=== PATIENT | male | born 1940 | race Caucasian/White ===

== ENCOUNTER 2021-01-04 02:50 | Observation (INO) ==
[2021-01-04] MEDS ORDERED: Furosemide 40 MG TABLET PO PRN (09:15)
[2021-01-04] MEDS ORDERED: Nitroglycerin 0.4 MG TAB.SUBL SL PRN (09:15)
[2021-01-04] MEDS ORDERED: Furosemide 40 MG/4 ML VIAL IVP SCH (10:06)
[2021-01-04] MEDS ORDERED: Naloxone 0.4 MG/ML INJ IVP PRN (10:07)
[2021-01-04] MEDS ORDERED: Ondansetron ODT 4 MG TAB.RAPDIS SL PRN (10:07)
[2021-01-04] MEDS ORDERED: MOM Conc 10 ML UD.LIQ PO PRN (10:07)
[2021-01-04 10:30] LABS: Basophils # 0.1 K/mcL (0.0-0.2); Basophils % 0.6 %; Eosinophils # 0.2 K/mcL (0.0-0.6); Eosinophils % 1.8 %; Hematocrit 30.9 % (37.5-50.1); Hemoglobin 10.1 g/dL (12.9-16.9); Lymphocytes # 1.6 K/mcL (0.6-4.6); Lymphocytes % 12.8 %; Mean Corpuscular HGB Conc 32.7 g/dL (31.6-35.5); Mean Corpuscular Hemoglobin 31.4 pg (28.0-33.3); Mean Platelet Volume 9.7 fL (9.4-12.4); Monocytes # 1.2 K/mcL (0.0-1.3); Monocytes % 9.4 %; Neutrophils # 9.2 K/mcL (1.6-8.9); Platelet Count 294 K/mcL (140-400); Red Blood Count 3.22 M/mcL (4.19-5.50); Red Cell Distribution Width 13.3 % (11.5-14.5); Segmented Neutrophils % 74.4 %; White Blood Count 12.4 K/mcL (4.3-11.1)
[2021-01-04] MEDS: Isosorbide MONOnitrate (24 HR) 30 MG TAB.ER.24H PO SCH (10:37)
[2021-01-04] MEDS: *HR* Amiodarone 200 MG TABLET PO SCH ×2 (10:37→20:30)
[2021-01-04] MEDS: Aspirin 81 MG TAB.CHEW PO SCH (10:37)
[2021-01-04] MEDS: lisinopriL 5 MG TABLET PO SCH (10:37)
[2021-01-04] MEDS: Apixaban 5 MG TABLET PO SCH ×2 (10:37→20:30)
[2021-01-04] MEDS: *HR* GlipiZIDE XL (24 HR) 2.5 MG TABLET PO SCH (10:37)
[2021-01-04] MEDS: Furosemide 40 MG/4 ML VIAL IVP SCH ×2 (10:38→17:32)
[2021-01-04] MEDS ORDERED: *HR* Dextrose 50 % in Water (Vial) 50 ML VIAL IVP PRN (10:40)
[2021-01-04] MEDS ORDERED: Dextrose Gel 15 GM/37.5 ML TUBE PO PRN ×2 (10:40)
[2021-01-04] MEDS ORDERED: D5% in Water 1,000 ML IVC PRN (10:40)
[2021-01-04] MEDS: Multivit/Ca/Min/Fe/FA 1 TAB TABLET PO SCH (10:48)
[2021-01-04] MEDS: Magnesium Oxide 400 MG TABLET PO SCH ×2 (10:48→20:30)
[2021-01-04] MEDS: Metoprolol XL (24 HR) Succ 50 MG TAB.ER.24H PO SCH (10:48)
[2021-01-04] MEDS ORDERED: Spironolactone 12.5 MG TABLET PO SCH (11:00)
[2021-01-04] MEDS: Spironolactone 25 MG TABLET PO SCH (11:49)
[2021-01-04] MEDS: Insulin LISPRO 300 UNITS/3 ML VIAL SUBQ SCH ×2 (11:50→17:32)
[2021-01-05] MEDS: lisinopriL 5 MG TABLET PO SCH (09:32)
[2021-01-05] MEDS: Magnesium Oxide 400 MG TABLET PO SCH ×2 (09:32→20:17)
[2021-01-05] MEDS: Aspirin 81 MG TAB.CHEW PO SCH (09:32)
[2021-01-05] MEDS: Multivit/Ca/Min/Fe/FA 1 TAB TABLET PO SCH (09:32)
[2021-01-05] MEDS: Apixaban 5 MG TABLET PO SCH ×2 (09:32→20:17)
[2021-01-05] MEDS: Isosorbide MONOnitrate (24 HR) 30 MG TAB.ER.24H PO SCH (09:33)
[2021-01-05] MEDS: Spironolactone 25 MG TABLET PO SCH (09:34)
[2021-01-05] MEDS: Furosemide 40 MG/4 ML VIAL IVP SCH ×2 (09:34→16:47)
[2021-01-05] MEDS: *HR* GlipiZIDE XL (24 HR) 2.5 MG TABLET PO SCH (09:34)
[2021-01-05] MEDS: *HR* Amiodarone 200 MG TABLET PO SCH ×2 (09:34→20:17)
[2021-01-05] MEDS: Metoprolol XL (24 HR) Succ 50 MG TAB.ER.24H PO SCH (09:34)
[2021-01-05] MEDS: Insulin LISPRO 300 UNITS/3 ML VIAL SUBQ SCH ×3 (09:35→16:35)
[2021-01-05 09:41] LABS: Alanine Aminotransferase 23 Units/L (7-52); Albumin 3.5 g/dL (3.5-5.7); Albumin/Globulin Ratio 1.1 (1.1-2.2); Alkaline Phosphatase 179 Units/L (34-104); Aspartate Amino Transferase 21 Units/L (13-39); BUN/Creatinine Ratio 26 (6-26); Bilirubin,Total 1.6 mg/dL (0.3-1.0); Blood Urea Nitrogen 33 mg/dL (8-23); Carbon Dioxide 33 mEq/L (23-29); Chloride 93 mEq/L (98-107); Globulin 3.2 g/dL (2.4-3.5); Glucose 208 mg/dL (70-105); Osmolality,Calculated 291 (280-300); Potassium 4.1 mEq/L (3.5-5.1); Sodium 134 mEq/L (136-145); Total Protein 6.7 g/dL (6.4-8.9); eGFR For African Americans > 60 (> 60); eGFR For Non-African Americans 54 (> 60)
[2021-01-05] MEDS ORDERED: Furosemide 40 MG/4 ML VIAL IVP ONE (11:34)
[2021-01-06 07:42] LABS: Basophils # 0.1 K/mcL (0.0-0.2); Basophils % 0.6 %; Eosinophils # 0.5 K/mcL (0.0-0.6); Eosinophils % 3.9 %; Hematocrit 28.3 % (37.5-50.1); Hemoglobin 9.1 g/dL (12.9-16.9); Lymphocytes # 1.9 K/mcL (0.6-4.6); Mean Corpuscular HGB Conc 32.2 g/dL (31.6-35.5); Mean Corpuscular Hemoglobin 31.4 pg (28.0-33.3); Mean Corpuscular Volume 97.6 fL (83.0-100.0); Monocytes # 1.4 K/mcL (0.0-1.3); Monocytes % 10.8 %; Neutrophils # 8.9 K/mcL (1.6-8.9); Platelet Count 323 K/mcL (140-400); Red Cell Distribution Width 13.5 % (11.5-14.5); Segmented Neutrophils % 68.7 %; White Blood Count 12.9 K/mcL (4.3-11.1)
[2021-01-06 08:09] LABS: Alanine Aminotransferase 21 Units/L (7-52); Albumin 3.3 g/dL (3.5-5.7); Alkaline Phosphatase 175 Units/L (34-104); Aspartate Amino Transferase 21 Units/L (13-39); BUN/Creatinine Ratio 25 (6-26); Bilirubin,Total 1.5 mg/dL (0.3-1.0); Blood Urea Nitrogen 34 mg/dL (8-23); Carbon Dioxide 34 mEq/L (23-29); Chloride 91 mEq/L (98-107); Globulin 3.2 g/dL (2.4-3.5); Glucose 84 mg/dL (70-105); Osmolality,Calculated 283 (280-300); Potassium 4.3 mEq/L (3.5-5.1); Sodium 133 mEq/L (136-145); Total Protein 6.5 g/dL (6.4-8.9); eGFR For African Americans > 60 (> 60); eGFR For Non-African Americans 50 (> 60)
[2021-01-06] MEDS: Furosemide 40 MG/4 ML VIAL IVP SCH ×2 (08:30→17:13)
[2021-01-06] MEDS: Spironolactone 25 MG TABLET PO SCH (08:31)
[2021-01-06] MEDS: Metoprolol XL (24 HR) Succ 50 MG TAB.ER.24H PO SCH (08:31)
[2021-01-06] MEDS: Isosorbide MONOnitrate (24 HR) 30 MG TAB.ER.24H PO SCH (08:31)
[2021-01-06] MEDS: Multivit/Ca/Min/Fe/FA 1 TAB TABLET PO SCH (08:31)
[2021-01-06] MEDS: Aspirin 81 MG TAB.CHEW PO SCH (08:31)
[2021-01-06] MEDS: *HR* GlipiZIDE XL (24 HR) 2.5 MG TABLET PO SCH (08:31)
[2021-01-06] MEDS: lisinopriL 5 MG TABLET PO SCH (08:31)
[2021-01-06] MEDS: Insulin LISPRO 300 UNITS/3 ML VIAL SUBQ SCH ×3 (08:32→17:13)
[2021-01-06] MEDS: Magnesium Oxide 400 MG TABLET PO SCH ×2 (08:32→20:04)
[2021-01-06] MEDS: *HR* Amiodarone 200 MG TABLET PO SCH ×2 (08:32→20:04)
[2021-01-06] MEDS: Apixaban 5 MG TABLET PO SCH ×2 (08:32→20:04)
[2021-01-06] MEDS: Acetaminophen 325 MG TABLET PO PRN (22:14)
[2021-01-07] MEDS: Isosorbide MONOnitrate (24 HR) 30 MG TAB.ER.24H PO SCH (09:00)
[2021-01-07] MEDS: Aspirin 81 MG TAB.CHEW PO SCH (09:01)
[2021-01-07] MEDS: lisinopriL 5 MG TABLET PO SCH (09:01)
[2021-01-07] MEDS: Multivit/Ca/Min/Fe/FA 1 TAB TABLET PO SCH (09:02)
[2021-01-07] MEDS: Apixaban 5 MG TABLET PO SCH ×2 (09:02→19:33)
[2021-01-07] MEDS: Metoprolol XL (24 HR) Succ 50 MG TAB.ER.24H PO SCH (09:02)
[2021-01-07] MEDS: Insulin LISPRO 300 UNITS/3 ML VIAL SUBQ SCH ×3 (09:03→16:50)
[2021-01-07] MEDS: *HR* GlipiZIDE XL (24 HR) 2.5 MG TABLET PO SCH (09:03)
[2021-01-07] MEDS: Magnesium Oxide 400 MG TABLET PO SCH ×2 (09:03→19:33)
[2021-01-07] MEDS: Spironolactone 25 MG TABLET PO SCH (09:03)
[2021-01-07] MEDS: *HR* Amiodarone 200 MG TABLET PO SCH ×2 (09:03→19:32)
[2021-01-07 09:15] LABS: Basophils # 0.1 K/mcL (0.0-0.2); Basophils % 0.8 %; Eosinophils # 0.6 K/mcL (0.0-0.6); Eosinophils % 4.2 %; Hematocrit 31.1 % (37.5-50.1); Hemoglobin 9.8 g/dL (12.9-16.9); Immature Granulocytes % 1.5 % (0-4); Lymphocytes % 11.1 %; Mean Corpuscular HGB Conc 31.5 g/dL (31.6-35.5); Mean Corpuscular Volume 98.4 fL (83.0-100.0); Mean Platelet Volume 9.9 fL (9.4-12.4); Monocytes # 1.2 K/mcL (0.0-1.3); Monocytes % 9.4 %; Neutrophils # 9.5 K/mcL (1.6-8.9); Platelet Count 313 K/mcL (140-400); Red Blood Count 3.16 M/mcL (4.19-5.50); Red Cell Distribution Width 13.3 % (11.5-14.5)
[2021-01-07] MEDS: Acetaminophen 325 MG TABLET PO PRN (09:18)
[2021-01-07 09:20] LABS: Lymphocytes # 1.4 K/mcL (0.6-4.6)
[2021-01-07 09:26] LABS: Albumin 3.3 g/dL (3.5-5.7); Bilirubin,Total 1.7 mg/dL (0.3-1.0); Calcium 9.1 mg/dL (8.6-10.3); Globulin 3.3 g/dL (2.4-3.5); Total Protein 6.6 g/dL (6.4-8.9)
[2021-01-07] MEDS: Furosemide 40 MG/4 ML VIAL IVP SCH ×2 (10:52→19:19)
[2021-01-07] MEDS ORDERED: Furosemide 40 MG/4 ML VIAL IVP ONE (11:33)
[2021-01-08] MEDS: Acetaminophen 325 MG TABLET PO PRN ×2 (02:15→21:02)
[2021-01-08] MEDS: Multivit/Ca/Min/Fe/FA 1 TAB TABLET PO SCH (08:53)
[2021-01-08] MEDS: *HR* GlipiZIDE XL (24 HR) 2.5 MG TABLET PO SCH (08:53)
[2021-01-08] MEDS: *HR* Amiodarone 200 MG TABLET PO SCH ×2 (08:54→21:04)
[2021-01-08] MEDS: Isosorbide MONOnitrate (24 HR) 30 MG TAB.ER.24H PO SCH (08:55)
[2021-01-08] MEDS: Spironolactone 25 MG TABLET PO SCH (08:55)
[2021-01-08] MEDS: Aspirin 81 MG TAB.CHEW PO SCH (08:56)
[2021-01-08] MEDS: lisinopriL 5 MG TABLET PO SCH (08:56)
[2021-01-08] MEDS: Metoprolol XL (24 HR) Succ 50 MG TAB.ER.24H PO SCH (08:57)
[2021-01-08] MEDS: Apixaban 5 MG TABLET PO SCH ×2 (08:57→21:05)
[2021-01-08] MEDS: Furosemide 40 MG TABLET PO SCH ×2 (08:57→16:30)
[2021-01-08] MEDS: Insulin LISPRO 300 UNITS/3 ML VIAL SUBQ SCH ×3 (08:57→16:52)
[2021-01-08] MEDS: Magnesium Oxide 400 MG TABLET PO SCH ×2 (08:58→21:05)
[2021-01-08] MEDS ORDERED: TRULICITY 0.75 MG/0.5 ML SQ SCH (09:31)
[2021-01-09] MEDS: Insulin LISPRO 300 UNITS/3 ML VIAL SUBQ SCH ×3 (08:55→17:10)
[2021-01-09] MEDS: Multivit/Ca/Min/Fe/FA 1 TAB TABLET PO SCH (08:56)
[2021-01-09] MEDS: Isosorbide MONOnitrate (24 HR) 30 MG TAB.ER.24H PO SCH (08:56)
[2021-01-09] MEDS: Aspirin 81 MG TAB.CHEW PO SCH (08:56)
[2021-01-09] MEDS: Furosemide 40 MG TABLET PO SCH ×2 (08:56→17:12)
[2021-01-09] MEDS: Magnesium Oxide 400 MG TABLET PO SCH ×2 (08:56→20:20)
[2021-01-09] MEDS: Apixaban 5 MG TABLET PO SCH ×2 (08:56→20:20)
[2021-01-09] MEDS: *HR* Amiodarone 200 MG TABLET PO SCH ×2 (08:56→20:20)
[2021-01-09] MEDS: lisinopriL 5 MG TABLET PO SCH (08:56)
[2021-01-09] MEDS: Metoprolol XL (24 HR) Succ 50 MG TAB.ER.24H PO SCH (08:56)
[2021-01-09] MEDS: Spironolactone 25 MG TABLET PO SCH (08:57)
[2021-01-09] MEDS: *HR* GlipiZIDE XL (24 HR) 2.5 MG TABLET PO SCH (08:57)
[2021-01-09] MEDS ORDERED: Insulin LISPRO 300 UNITS/3 ML VIAL SUBQ SCH (21:00)
[2021-01-09] MEDS: Acetaminophen 325 MG TABLET PO PRN (22:07)
[2021-01-10] MEDS: Acetaminophen 325 MG TABLET PO PRN ×2 (04:18→16:05)
[2021-01-10 07:17] VITALS: BP 125/69
[2021-01-10] MEDS: Insulin LISPRO 300 UNITS/3 ML VIAL SUBQ SCH ×2 (07:51→11:52)
[2021-01-10] MEDS: Multivit/Ca/Min/Fe/FA 1 TAB TABLET PO SCH ×2 (07:52→07:56)
[2021-01-10] MEDS: lisinopriL 5 MG TABLET PO SCH (07:53)
[2021-01-10] MEDS: Metoprolol XL (24 HR) Succ 50 MG TAB.ER.24H PO SCH (07:53)
[2021-01-10] MEDS: Furosemide 40 MG TABLET PO SCH (07:53)
[2021-01-10] MEDS: Aspirin 81 MG TAB.CHEW PO SCH (07:54)
[2021-01-10] MEDS: *HR* GlipiZIDE XL (24 HR) 2.5 MG TABLET PO SCH (07:55)
[2021-01-10] MEDS: Isosorbide MONOnitrate (24 HR) 30 MG TAB.ER.24H PO SCH (07:55)
[2021-01-10] MEDS: *HR* Amiodarone 200 MG TABLET PO SCH (07:56)
[2021-01-10] MEDS: Magnesium Oxide 400 MG TABLET PO SCH (07:56)
[2021-01-10] MEDS: Spironolactone 25 MG TABLET PO SCH (07:57)
[2021-01-10] MEDS: Apixaban 5 MG TABLET PO SCH (07:59)
[2021-01-10 10:24] LABS: Albumin 3.2 g/dL (3.5-5.7); Albumin/Globulin Ratio 0.9 (1.1-2.2); Bilirubin,Total 1.5 mg/dL (0.3-1.0); Globulin 3.5 g/dL (2.4-3.5); Potassium 4.3 mEq/L (3.5-5.1); Total Protein 6.7 g/dL (6.4-8.9)
[2021-01-10] MEDS ORDERED: Furosemide 40 MG TABLET PO SCH (17:00)
== END 2021-01-10 15:12 ==
LOC: INPPIK
PROVIDERS: ADMIT Internal Medicine; ATTEND Internal Medicine